=== PATIENT | female | born 1995 | race Caucasian/White ===

== ENCOUNTER → 2022-01-27 | Outpatient (REF) ==
[2022-01-27 13:10] LABS: RSV AMPLIFICATION NEGATIVE (NEGATIVE)
== END ==
LOC: M LABSMTC 10:33
PROVIDERS: ATTEND Family Medicine
DX: Z20.822 Contact with and (suspected) exposure to COVID-19 (principal)

== ENCOUNTER → 2022-01-27 | Outpatient (REF) | LOC: M LABSMTC 10:16 | PROVIDERS: ATTEND Family Medicine | DX: Z20.822 Contact with and (suspected) exposure to COVID-19 (principal); Z53.9 Procedure and treatment not carried out, unspecified reason ==

== ENCOUNTER → 2022-07-27 | Outpatient (REF) ==
[2022-07-27 11:25] LABS: RSV AMPLIFICATION NEGATIVE (NEGATIVE)
== END ==
LOC: M LABSMTC 09:32
PROVIDERS: ATTEND Family Medicine
DX: Z20.822 Contact with and (suspected) exposure to COVID-19 (principal)

== ENCOUNTER → 2022-11-04 | Outpatient (CLI) | payer BC, OTHER | LOC: M RAD 16:14 | DX: R10.2 Pelvic and perineal pain (principal); Z97.5 Presence of (intrauterine) contraceptive device ==

== ENCOUNTER → 2023-12-05 | Outpatient (REF) | LOC: M EMP 07:45 | PROVIDERS: ATTEND Family Medicine | DX: Z20.828 Contact with and (suspected) exposure to other viral communicable diseases (principal) ==